=== PATIENT | male | born 1975 | race Hispanic/Latino ===

== ENCOUNTER 2017-06-20 11:04 | Emergency (ER) | payer OTHER ==
[~2017-06-20] VITALS: Ht 185.4 cm; Wt 120.2 kg
[2017-06-20 11:54] LABS: CLARITY,URINE SL CLOUDY (CLEAR); COLOR,URINE YELLOW (YELLOW)
[2017-06-20 11:57] LABS: LEUKOCYTE ESTERASE ,URINE NEGATIVE (NEGATIVE); NITRITE,URINE NEGATIVE (NEGATIVE); PROTEIN,URINE DIPSTICK NEGATIVE (NEGATIVE)
[2017-06-20 11:58] LABS: BILIRUBIN,URINE NEGATIVE (NEGATIVE); KETONES,URINE NEGATIVE (NEGATIVE); URINE UROBILINOGEN 0.2 mg/dL (0.2 - 1)
[2017-06-20 12:08] LABS: EPITHELIAL CELLS,URINE RARE /LPF
[2017-06-20 12:35] VITALS: BP 127/71
== END 2017-06-20 12:44 | disposition home or self-care (01) ==
LOC: ER 11:04
DX: R11.2 Nausea with vomiting, unspecified (principal); R10.84 Generalized abdominal pain; M79.1 Myalgia
CPT/HCPCS: 81001; 87086; 87400; 99283